=== PATIENT | female | born 1940 | race Caucasian/White ===

== ENCOUNTER 2017-06-04 19:15 | Observation (INO) | payer MEDICARE, MEDICAID ==
[~2017-06-04] VITALS: Ht 162.6 cm; Wt 85.0 kg
[~2017-06-04 19:15] MED LIST: ANTIBIOTIC PO; ASPI-650 PO; ASPI325T4 PO; HYDR-3138 PO; INSU100I29 SQ; INSU100V8 SQ; LANTUS SQ; LISI-167 PO; METO25TA35 PO; PANT40TA3 PO; PIOG30TA8 PO; SIMV20TA PO; TRAM-28 PO; WARF7.5T6 PO-COUM
[2017-06-04] MEDS ORDERED: DEXTROSE 50%, 50ML VIAL ONE ×2 (20:16→22:31)
[2017-06-04] MEDS ORDERED: DEXTROSE 50%, 50ML SYRINGE IVPush ONE ×2 (20:30→23:00)
[2017-06-04] MEDS ORDERED: POLYETHYLENE GLYCOL 17 GM PACKET PO PRN (23:00)
[2017-06-04] MEDS ORDERED: DEXTROSE 50%, 50ML SYRINGE IVPush PRN (23:00)
[2017-06-04] MEDS ORDERED: ENOXAPARIN 40 MG/0.4 ML SQ SCH (23:00)
[2017-06-04] MEDS ORDERED: BISACODYL 10 MG SUPP PR PRN (23:00)
[2017-06-04] MEDS ORDERED: HYDROcodone/APAP 5/325 TABLET PO PRN (23:00)
[2017-06-04] MEDS ORDERED: GLUCAGON 1 MG IM PRN (23:00)
[2017-06-04] MEDS ORDERED: DEXTROSE 4 GM TAB.CHEW PO PRN (23:00)
[2017-06-04] MEDS ORDERED: ZOLPIDEM 5MG TABLET PO PRN (23:00)
[2017-06-04] MEDS ORDERED: ONDANSETRON 2MG/ML, 2ML IVPush PRN (23:00)
[2017-06-04] MEDS ORDERED: DOCUSATE 100 MG CAPSULE PO PRN (23:00)
[2017-06-04] MEDS ORDERED: ACETAMINOPHEN 325 MG TABLET PO PRN (23:00)
[2017-06-04 23:28] LABS: HEMATOCRIT 44.2 % (34.6-47.8); HEMOGLOBIN 14.3 g/dL (11.7-16.4); WHITE BLOOD COUNT 6.6 x10^3/uL (3.4-10)
[2017-06-04] MEDS ORDERED: hydrALAzine 20 MG/ML, 1ML IV PRN (23:30)
[2017-06-04 23:33] LABS: BLOOD UREA NITROGEN 20 mg/dL (7-18)
[2017-06-04] MEDS ORDERED: INSU100V8 SQ (23:44)
[2017-06-04] MEDS ORDERED: VERAPAMIL (23:45)
[2017-06-04] MEDS ORDERED: IBUP400T PO (23:45)
[2017-06-04] MEDS ORDERED: VIT D (23:46)
[2017-06-05] MEDS ORDERED: ENOXAPARIN 40 MG/0.4 ML ONE (00:01)
[2017-06-05] MEDS ORDERED: hydrALAzine 20 MG/ML, 1ML ONE (00:01)
[2017-06-05 00:23] VITALS: BP 161/76
[2017-06-05] MEDS: D5%-0.45% NACL 1,000 ML IV SCH ×2 (00:29→07:00)
[2017-06-05 07:39] VITALS: BP 167/77
[2017-06-05] MEDS ORDERED: INSULIN DETEMIR 100 UNITS/ML, PEN SQ-INSULIN ONE (08:00)
[2017-06-05] MEDS: INSULIN REGULAR 100 UNITS/ML, 3ML VIAL SQ-INSULIN SCH ×3 (08:48→16:11)
[2017-06-05] MEDS ORDERED: VERAPAMIL ER 120MG TABLET.ER PO SCH (09:00)
[2017-06-05] MEDS ORDERED: SODIUM CHLORIDE FLUSH 10ML SYR IVF SCH (09:00)
[2017-06-05 16:16] VITALS: BP 165/80
[2017-06-05] MEDS ORDERED: INSULIN DETEMIR 100 UNITS/ML, PEN SQ-INSULIN SCH (21:00)
[2017-06-05] MEDS ORDERED: D5%-0.45% NACL 1,000 ML IV SCH (23:00)
== END 2017-06-05 17:43 | disposition home or self-care (01) ==
LOC: ED 21:03 → EDIP 22:41 → INTOOBSV 22:41 → 3NE 06-05 00:13
PROVIDERS: ATTEND Family Medicine
DX: T38.3X1A Poisoning by insulin and oral hypoglycemic [antidiabetic] drugs, accidental (unintentional), initial encounter (principal); E11.649 Type 2 diabetes mellitus with hypoglycemia without coma; I10 Essential (primary) hypertension; E78.5 Hyperlipidemia, unspecified; M19.90 Unspecified osteoarthritis, unspecified site; E78.00 Pure hypercholesterolemia, unspecified; Y92.89 Other specified places as the place of occurrence of the external cause; Z82.3 Family history of stroke; Z79.4 Long term (current) use of insulin; Z86.711 Personal history of pulmonary embolism; Z96.651 Presence of right artificial knee joint; Z90.49 Acquired absence of other specified parts of digestive tract; Z90.710 Acquired absence of both cervix and uterus
CPT/HCPCS: 36415; 80048; 82962; 85025; 96361; 96372; 96374; 96375; 96376; 99285; G0378; J0360; J1650; J1815

== ENCOUNTER → 2017-07-09 | Outpatient (CLI) | payer MEDICARE, MEDICAID ==
[~2017-07-09] MED LIST changes: +ASPI325T17 PO; -ASPI325T4 PO; -HYDR-3138 PO; +HYDR-3237 PO; +IBUP-1221 PO; +INSU100C SQ-INSULIN; +LIDOCAINE 1%, 20ML ONE; +PIOG30TA23 PO; -PIOG30TA8 PO; -TRAM-28 PO; +TRAM-47 PO; +VERAPAMIL; +VIT D
== END | disposition home or self-care (01) ==
LOC: RAD 09:28
PROVIDERS: ATTEND Otolaryngology Facial Plastic Surgery
DX: R59.0 Localized enlarged lymph nodes (principal); R49.9 Unspecified voice and resonance disorder
CPT/HCPCS: 38505; 76942; 88305; 88341; 88342; 88360; J3490; G0461

== ENCOUNTER → 2017-07-16 | Outpatient (CLI) | payer MEDICARE, MEDICAID ==
[~2017-07-16] MED LIST changes: -LIDOCAINE 1%, 20ML ONE
[2017-07-16 14:59] LABS: HEMATOCRIT 42.3 % (34.6-47.8); HEMOGLOBIN 13.9 g/dL (11.7-16.4); WHITE BLOOD COUNT 7.1 x10^3/uL (3.4-10)
[2017-07-16 15:07] LABS: ASPARTATE AMINO TRANSFERASE 10 U/L (15-37); BLOOD UREA NITROGEN 24 mg/dL (7-18)
== END | disposition home or self-care (01) ==
LOC: STAR 13:53
PROVIDERS: ATTEND Otolaryngology Facial Plastic Surgery
DX: Z01.818 Encounter for other preprocedural examination (principal); C01 Malignant neoplasm of base of tongue
CPT/HCPCS: 36415; 71020; 80053; 85025; 93005

== ENCOUNTER 2017-07-28 09:40 | Day surgery (SDC) | payer MEDICARE, MEDICAID ==
[2017-07-16 14:43] VITALS: BP 170/81
[~2017-07-28] VITALS: Ht 163.8 cm; Wt 86.4 kg
[2017-07-28] MEDS ORDERED: VERA180T56 PO (10:11)
[2017-07-28] MEDS ORDERED: LOSA25TA5 PO (10:11)
[2017-07-28] MEDS ORDERED: LACTATED RINGERS 1,000 ML IV SCH (10:12)
[2017-07-28] MEDS ORDERED: FENTANYL PF 100 MCG/2ML ONE (10:22)
[2017-07-28] MEDS ORDERED: MIDAZOLAM 1 MG/ML, 2ML ONE (10:23)
[2017-07-28] MEDS ORDERED: LIDOCAINE 1%, 2ML SQ PRN (10:30)
[2017-07-28] MEDS ORDERED: EPINEPHRINE TOPICAL SOLN 1 MG/ML, 30ML ONE (10:52)
[2017-07-28] MEDS ORDERED: LIDOCAINE GEL 2%, 5ML ONE (10:54)
[2017-07-28] MEDS ORDERED: PROPOFOL 50 ML ONE (10:57)
[2017-07-28] MEDS ORDERED: REMIFENTANIL 2 MG ONE (11:01)
[2017-07-28] MEDS ORDERED: SUCCINYLCHOLINE 20 MG/ML, 10ML ONE (11:04)
[2017-07-28] MEDS ORDERED: DEXAMETHASONE 4 MG/ML, 1ML ONE ×2 (11:18)
[2017-07-28] MEDS ORDERED: GLYCOPYRROLATE 0.4 MG/2 ML, 2ML ONE (11:20)
[2017-07-28] MEDS ORDERED: ONDANSETRON 2MG/ML, 2ML ONE ×2 (11:23)
[2017-07-28] MEDS ORDERED: hydrALAzine 20 MG/ML, 1ML IV PRN (11:30)
[2017-07-28] MEDS ORDERED: OXYcodone 5 MG/5 ML ORAL.SOL UDC PO PRN (11:30)
[2017-07-28] MEDS ORDERED: FENTANYL PF 100 MCG/2ML IV PRN (11:30)
[2017-07-28] MEDS ORDERED: MEPERIDINE/PF 25MG/0.5ML IVPush PRN (11:30)
[2017-07-28] MEDS ORDERED: ONDANSETRON 2MG/ML, 2ML IVPush PRN (11:30)
[2017-07-28] MEDS ORDERED: LABETALOL 5MG/ML, 20ML IV PRN (11:30)
[2017-07-28] MEDS ORDERED: ACETAMINOPHEN 325 MG TABLET PO PRN (11:30)
[2017-07-28] MEDS ORDERED: HYDROmorphone 1 MG/ML, 1ML IV PRN (11:30)
[2017-07-28] MEDS ORDERED: METOCLOPRAMIDE 5 MG/ML, 2ML IV PRN (11:30)
[2017-07-28] MEDS ORDERED: INSULIN SINGLE DOSE, ER SQ-INSULIN ONE (11:59)
[2017-07-28] MEDS ORDERED: LABETALOL 5MG/ML, 20ML ONE (12:12)
[2017-07-28] MEDS ORDERED: MEPERIDINE/PF 25MG/0.5ML ONE (12:18)
[2017-07-28] MEDS ORDERED: INSULIN REGULAR 100 UNITS/ML, 3ML VIAL SQ-INSULIN SCH (16:00)
== END 2017-07-28 14:00 ==
LOC: OUT 09:40
PROVIDERS: ATTEND Otolaryngology Facial Plastic Surgery
DX: C01 Malignant neoplasm of base of tongue (principal); E11.9 Type 2 diabetes mellitus without complications; Z88.8 Allergy status to other drugs, medicaments and biological substances
CPT/HCPCS: 31536; 82962; 88305; 88331; J0330; J1100; J2175; J2250; J2405; J2704; J3010; J3490; J7120

== ENCOUNTER 2019-04-13 13:19 | Outpatient (CLI) | payer MEDICARE, MEDICAID ==
[~2019-04-13 13:19] MED LIST changes: +LOSA25TA25 PO; +VERA180T6 PO; +WARF7.5T46 PO-COUM; -WARF7.5T6 PO-COUM
== END 2019-04-13 23:59 | disposition home or self-care (01) ==
LOC: RAD 13:19
PROVIDERS: ATTEND Family Medicine
DX: Z01.818 Encounter for other preprocedural examination (principal); M41.85 Other forms of scoliosis, thoracolumbar region; R06.02 Shortness of breath
CPT/HCPCS: 71046

== ENCOUNTER 2020-04-08 12:25 | Emergency (ER) | payer MEDICARE, MEDICAID ==
[~2020-04-08] VITALS: Ht 163.8 cm; Wt 78.0 kg
[2020-04-08] MEDS ORDERED: INSU100I13 SQ (12:42)
[2020-04-08] MEDS ORDERED: VERA40TA PO (12:42)
[2020-04-08] MEDS ORDERED: RIVA20TA PO (12:42)
[2020-04-08] MEDS ORDERED: LOSA25TA12 PO (12:42)
[2020-04-08] MEDS ORDERED: INSU100I11 SQ (12:42)
[2020-04-08] MEDS ORDERED: OMEP20CA20 PO (12:42)
[2020-04-08] MEDS ORDERED: FURO20TA3 PO (12:42)
--- NOTE | 2020-04-08 12:44 | NUR ---
LAC T RT INDEX FINGER DISTAL TO 1ST JOINT. PT STATES SHE CAUGHT HER FINGER ON RAILING. TD UTD.
[2020-04-08] MEDS ORDERED: VITAMIN D PO (12:52)
[2020-04-08] MEDS ORDERED: LIDOCAINE-MPF 1%, 5ML ONE (12:57)
[2020-04-08] MEDS ORDERED: LIDOCAINE-MPF 1%, 5ML INFIL ONE (13:00)
[2020-04-08] MEDS ORDERED: NEOSPORIN OINT. PKT 1 PACKET ONE (13:46)
[2020-04-08 14:12] VITALS: BP 173/58
== END 2020-04-08 14:14 | disposition home or self-care (01) ==
LOC: ED 13:20
DX: S61.210A Laceration without foreign body of right index finger without damage to nail, initial encounter (principal); W18.40XA Slipping, tripping and stumbling without falling, unspecified, initial encounter; Y93.89 Activity, other specified; Y92.89 Other specified places as the place of occurrence of the external cause; Y99.8 Other external cause status
CPT/HCPCS: 12001; 99282

== ENCOUNTER → 2020-12-08 | Outpatient (CLI) | payer MEDICARE, MEDICAID ==
[~2020-12-08] MED LIST changes: +ASPI-1026 PO; -ASPI-650 PO; +FURO20TA3 PO; +INSU100I11 SQ; +INSU100I13 SQ; +LOSA25TA12 PO; +OMEP20CA20 PO; +RIVA20TA PO; +VERA40TA PO; +VITAMIN D PO
== END | disposition home or self-care (01) ==
LOC: CFH 12:55
PROVIDERS: ATTEND Otolaryngology
DX: C77.0 Secondary and unspecified malignant neoplasm of lymph nodes of head, face and neck (principal); C01 Malignant neoplasm of base of tongue
CPT/HCPCS: 70490; 71250; 82565

== ENCOUNTER → 2021-04-12 | Outpatient (CLI) | payer MEDICARE, MEDICAID | END | disposition home or self-care (01) | LOC: CFH 12:02 | PROVIDERS: ATTEND Obstetrics & Gynecology | DX: N64.4 Mastodynia (principal); N64.9 Disorder of breast, unspecified | CPT/HCPCS: 77062; 77066; G0279 ==

== ENCOUNTER → 2021-04-13 | Outpatient (CLI) | payer MEDICARE, MEDICAID | END | disposition home or self-care (01) | LOC: CVU 07:16 | PROVIDERS: ATTEND Obstetrics & Gynecology | DX: R09.89 Other specified symptoms and signs involving the circulatory and respiratory systems (principal); E11.9 Type 2 diabetes mellitus without complications; I10 Essential (primary) hypertension | CPT/HCPCS: 93922 ==